=== PATIENT | male | born 1965 | race Hispanic/Latino ===

== ENCOUNTER 2022-11-01 12:08 | Emergency (ER) | payer SELFPAY ==
[2022-11-01 12:11] VITALS: BP 139/93; PULSE 71; RESP 14; TEMP 36.5; O2SAT 99; BMI 27.3
[2022-11-01 12:35] VITALS: O2SAT 98
--- NOTE | 2022-11-01 12:35 | RAD_ITS ---
STUDY: X-RAY - LEFT HAND, ATTENTION INDEX FINGER REASON FOR EXAM: Male, 57 years old. Amputation TECHNIQUE: 4 view(s) of the finger were obtained. COMPARISON: None. FINDINGS: Normal metacarpal head. Normal metacarpophalangeal joint. Normal proximal phalanx. Normal middle phalanx. There is amputation of the distal portion of the distal phalanx of the index finger with overlying laceration. A radiograph of the amputated segment was performed. Normal proximal interphalangeal joint. Normal distal interphalangeal joint. RAD/Finger(s) Min 2 Views IMPRESSION: Amputation of the distal portion of the distal phalanx of the index finger with overlying soft tissue laceration. Electronically Signed: Skyler Herrmann MD at 12:48 EST ,
--- NOTE | 2022-11-01 13:32 | EDS_ITS ---
HPI History of Present Illness HPI Narrative: Left index finger tip amputation caught on the door frame between the hinge and the frame. Chief Complaint: Trauma Informant: patient and friend Occured/Mechanism Mechanism/Context: Yes injury and Yes blunt trauma Onset/Context/Timing Onset: Today and Hours Context: Sudden Onset Timing: Continuous Quality of Pain: Sharp Current Severity: Mild Maximum Severity: Mild Associated Symptoms Associated Symptoms: Negative for Parasthesia, Weakness or Loss of Funtion Narrative Narrative: 57-year-old male right hand dominant. Was at home today and got his left index finger tip caught in a door frame by the hinge and amputated the distal third of his left index finger distal phalanx off. This occurred several hours ago. Tetanus is up-to-date within the last 2 years. Denies any other injuries. Tetanus Immunization: <5 years Prior similar symptoms: No Recent Illness/Hospitalization: No PFSH PFSH Medical History no medical history no medical history Home Medications hydrocodone-acetaminophen 5-325mg 5mg-325mg 1 tab PO Q4H PRN finger amputation 5 days #15 tabs 11/01/22 [Rx Last Taken Unknown] Allergy/AdvReac Type Severity Reaction Status Date / Time No Known Allergies Allergy Verified 11/01/22 12:11 Social History Smoking Status: Never smoker ROS ROS ED ROS Narrative Denies recent illness. Review of Systems ROS Unobtainable: Denies due to encephalopathy Constitutional Constitutional ED: Denies chills or fever(s) Eyes Eyes: Denies blurry vision ENT ENT ED: Denies ear pain Cardiovascular Cardiovascular: Denies chest pain Respiratory/Chest Respiratory/Chest: Denies cough or dyspnea Gastrointestinal Gastrointestinal: Denies abdominal pain Genitourinary Genitourinary ED: Denies dysuria or hematuria Musculoskeletal Musculoskeletal: Denies back pain Integumentary Denies abscess Neurologic Neurologic: Denies headache(s) Psychiatric Psychiatric: Denies anxiety Endocrine Endocrinology: Denies cold intolerance or heat intolerance Hematologic/Lymphatic Hematologic/Lymphatic: Denies easy bleeding or easy bruising Allergic/Immunologic Allergic/Immunologic ED: Denies mouth swelling or tongue swelling EXAM Physical Exam Narrative Exam Narrative: 57-year-old male vital signs stable afebrile. No acute distress. Left hand index finger dressing. H EENT exam unremarkable. Lungs are clear. Heart reg ular rhythm. Abdomen soft nontender. Moving all 4 extremities. Neurovascular intact. Left hand specifically left index finger distal third of the distal phalanx of the left index finger is amputated. There is skin over the distal bone. The finger otherwise is neurovascularly intact and nontender. Otherwise exam unremarkable. Const Vital Signs: 11/01/22 12:11 11/01/22 12:35 Temperature 97.7 F L Temperature Source Temporal Pulse Rate 71 Respiratory Rate 14 Respiratory Effort Normal Non-Labored Respiratory Depth Normal Respiratory Pattern Normal Blood Pressure 139/93 H Blood Pressure Mean 108 Pulse Ox 99 98 Oxygen Delivery Method Room Air Room Air Positive well nourished and well developed; Negative for obese, cachectic, contractures or unkempt General Appearance ED: well developed and NAD; Negative for unkempt, cachectic, contractures, cyanotic or diaphoretic Nutritional Appearance: Negative for cachectic or obese HEENT Reports moist mucous membranes normocephalic and atraumatic; Negative for trauma or tenderness Eyes PERRL and EOMs intact bilaterally General Eye ED: Negative for other Neck full ROM and supple General: Negative for tenderness or other Lymph Lymphatic: Negative for other Chest Wall inspection of chest normal and palpation of chest normal Chest: Negative for other Resp normal respiratory effort and clear to auscultation bilaterally Effort and Inspection: Negative for pain with movement Auscultation: Negative for rales, rhonchi or wheezes Cardio regular rate, regular rhythm, S1 normal heart sound, S2 normal heart sound and no murmurs Rate: Negative for bradycardia or tachycardic Rhythm: Negative for abnormal rhythm GI non-distended and no masses Inspection: Negative for abdominal distention Auscultation: normoactive bowel sounds Palpation: soft; Negative for tender or guarding Neuro oriented x3, CN's II-XII intact bilaterally, moves all extremities, no focal motor deficits and no sensory deficits noted Sensorium / Orientation: alert, oriented to person, oriented to place and oriented to time; Negative for orientation impaired, lethargic or stuporous Motor Exam: strength 5/5 throughout Psych mental status grossly normal Appearance: Negative for unkempt Attitude: No agitated Mood & Affect: Negative for depressed, anxious or tearful Skin General Skin Exam: Negative for petechiae Lesions: no lesions Rashes: no rashes Trauma: laceration; Negative for no lacerations or abrasions MDM MDM MDM Narrative Medical decision making narrative: 57-year-old male with left index finger distal tip amputation. X-rays been obtained. The distal phalanx has a amputation of the distal end. Patient's tetanus is up-to-date. The area will be cleaned and closed. Radiography Diagnostic Testing: Clinical Impression(s) from Imaging Studies Finger X-Ray 11/01/22 12:35 IMPRESSION: Amputation of the distal portion of the distal phalanx of the index finger with overlying soft tissue laceration. Electronically Signed: Skyler Herrmann MD at 12:48 EST , Procedures Lacerations Left index fingertip distal amputation repair:: Depth: Sub Q Number of Sutures/Tal[place]ott: 3 Suture Information: - (3-0 Ethilon.) Comment: Left index finger distal tip amputation with the distal phalanx fractured. Digital block was performed of the index finger. He got good anesthesia. I had the rondure down the distal end of the bone because it was not covered by skin. The nail was partially avulsed also I took it off cleaned it revise it and put it back underneath the paronychial tissue. Once a rongeur down the bone I then closed the amputation with 3 simple interrupted 3-0 Ethilon sutures. Proper hemostasis and wound closure obtained. Patient tolerated procedure well. I explained to both he and his friend at bedside for wound care and suture removal in 10 days. Discharge Plan Triage Chief Complaint: Trauma ED Provider: Jimmy Garcia Dx/Rx/DC Orders Clinical Impression: Amputation of index finger Instructions: ED Finger Tip Amputation Open ... Prescriptions: New hydrocodone-acetaminophen 5-325 mg tablet 1 tab PO Q4H PRN (Reason: finger amputation) 5 Days Qty: 15 0RF Primary Care Provider: Care Physician,No Primary Referrals: Daniel Martin DO [Med Staff - Active Staff] - 10 Day for suture removal Care Physician,No Primary [Primary Care Provider] - Activity Restrictions/Additional Instructions: Ice and elevate. Motrin and Tylenol for pain. [place] for more severe pain. Leave our dressing on for 3 to 5 days. If it gets dirty, wet or bloodsoaked it can be changed. When she take the dressing off clean it once to twice daily with soap and water and peroxide and water. Apply antibiotic ointment daily. Call and follow-up with orthopedic doctor to take the stitches out in 10 days. This will eventually heal it will take weeks to months but long-term it should look good. If the nail falls off a slip it back under the skin. This will allow the other nail to grow out. Print Language: Indonesian Disposition Disposition: Home, Self Care
[2022-11-01] MEDS: Lidocaine 1% (20 ml mdv) 20 ML Vial 10 ML INFILT (14:00)
[2022-11-01 14:01] VITALS: O2SAT 99
[2022-11-01] MEDS: HYDROcodone Bitartrate/Apap 5/325 Tablet PO (15:47)
== END 2022-11-01 15:53 | disposition home or self-care (01) ==
PROVIDERS: Emergency Provider Emergency Medicine; Visit Provider Emergency Medicine
DX: S68.111A Complete traumatic metacarpophalangeal amputation of left index finger, initial encounter (principal); W23.0XXA Caught, crushed, jammed, or pinched between moving objects, initial encounter
CPT/HCPCS: 26951; 73140; 99284